=== PATIENT | female | born 1940 | race Caucasian/White ===

== ENCOUNTER 2022-04-01 13:58 | Inpatient (IN) | payer OTHER, MEDICARE ==
[2022-04-01] MEDS ORDERED: LACTATED RINGERS SOLUTION 1000 ML INFUS.BAG IV ONE (15:55)
[2022-04-01] MEDS ORDERED: MECLIZINE HCL 25 MG TABLET (FP) PO ONE (15:55)
[2022-04-01] MEDS ORDERED: MECLIZINE HCL 25 MG TABLET (FP) ONE ×2 (17:07→21:50)
[2022-04-01 17:25] LABS: BASO % 0.3 % (0-2.0); HEMATOCRIT 44.8 % (32.4-45.2); HEMOGLOBIN 15.2 GM/dL (10.7-15.3); LYMPH % 8.9 % (8-40); MCH 29.1 pg (25.7-33.7); MCHC 33.9 g/dl (32.0-36.0); MEAN CELL VOLUME 85.8 fl (80-96); MONO % 10.5 % (3.8-10.2); NEUT % 79.3 % (42.8-82.8); PLATELET COUNT 162 10^3/uL (134-434); RBC 5.22 M/mm3 (3.60-5.2); RDW 12.8 % (11.6-15.6); WHITE BLOOD COUNT 10.3 K/mm3 (4.0-10.0)
[2022-04-01 17:37] LABS: ALBUMIN 4.3 g/dl (3.4-5.0); CALCIUM 9.6 mg/dL (8.5-10.1); MAGNESIUM 2.4 mg/dL (1.8-2.4)
[2022-04-01 17:42] LABS: BILIRUBIN,TOTAL 0.6 mg/dL (0.2-1); TOT PROT 6.9 g/dl (6.4-8.2)
[2022-04-01 17:46] LABS: N-TERMINAL BNP 254.8 pg/ml (5-450)
[2022-04-01] MEDS ORDERED: ASPIRIN 81 MG CHEWABLE TABLETS PO ONE (19:12)
[2022-04-01] MEDS ORDERED: ASPIRIN 81 MG CHEWABLE TABLETS ONE (19:52)
[2022-04-01 20:40] LABS: EPI CELLS 16 /uL (0-25.1); HYALINE CASTS 0 /uL (0-3.1); URINE APPEARANCE CLEAR; URINE BACTERIA 158 /uL (0-1359); URINE BILIRUBIN NEGATIVE (NEGATIVE); URINE COLOR YELLOW; URINE GLUCOSE (UA) NEGATIVE (NEGATIVE); URINE KETONE NEGATIVE (NEGATIVE); URINE LEUK ESTERASE 2+ (NEGATIVE); URINE NITRITE NEGATIVE (NEGATIVE); URINE PROTEIN NEGATIVE (NEGATIVE); URINE RBC 19 /uL (0-23.9); URINE UROBILINOGEN 0.2 mg/dL (0.2-1.0); URINE WBC 40 /uL (0-25.8)
[2022-04-01] MEDS ORDERED: ATORVASTATIN CA 10 MG TABLET (FP) ONE (21:50)
[2022-04-01] MEDS ORDERED: PANTOPRAZOLE 40 MG TABLET PO ONE (21:50)
[2022-04-01] MEDS ORDERED: HEPARIN NA (PORCINE) 5,000 UNITS/ML 1ML VIAL ONE (21:50)
[2022-04-01] MEDS: MECLIZINE HCL 25 MG TABLET (FP) PO SCH ×2 (21:57→22:00)
[2022-04-01] MEDS: PANTOPRAZOLE 40 MG TABLET PO SCH (22:00)
[2022-04-01] MEDS: ATORVASTATIN CA 10 MG TABLET (FP) PO SCH (22:00)
[2022-04-01] MEDS: HEPARIN NA (PORCINE) 5,000 UNITS/ML 1ML VIAL SQ SCH (22:00)
[2022-04-01] MEDS ORDERED: MELATONIN 5 MG TABLETS PO PRN (22:45)
[2022-04-01] MEDS ORDERED: ACETAMINOPHEN 325 MG TABLET (FP) PO PRN (22:45)
[2022-04-01] MEDS ORDERED: ZOLPIDEM TARTRATE 5 MG TABLET PO PRN (22:46)
[2022-04-02 05:32] VITALS: BMI 29.0
[2022-04-02] MEDS: LEVOTHYROXINE NA 50 MCG TABLET (FP) PO SCH (06:21)
[2022-04-02] MEDS: HEPARIN NA (PORCINE) 5,000 UNITS/ML 1ML VIAL SQ SCH ×3 (06:21→23:55)
[2022-04-02 08:23] LABS: BASO % 0.6 % (0-2.0); EOS % 2.2 % (0-4.5); HEMATOCRIT 40.8 % (32.4-45.2); HEMOGLOBIN 13.5 GM/dL (10.7-15.3); LYMPH % 17.7 % (8-40); MCH 28.6 pg (25.7-33.7); MEAN CELL VOLUME 86.5 fl (80-96); MEAN PLT VOLUME 9.4 fl (7.5-11.1); MONO % 13.1 % (3.8-10.2); NEUT % 66.4 % (42.8-82.8); PLATELET COUNT 144 10^3/uL (134-434); RBC 4.72 M/mm3 (3.60-5.2); RDW 12.6 % (11.6-15.6); WHITE BLOOD COUNT 7.1 K/mm3 (4.0-10.0)
[2022-04-02] MEDS: PANTOPRAZOLE 40 MG TABLET PO SCH (09:20)
[2022-04-02] MEDS: MECLIZINE HCL 25 MG TABLET (FP) PO SCH ×3 (09:20→17:53)
[2022-04-02] MEDS: LITHIUM CARBONATE 150 MG CAPSULE PO SCH (10:27)
[2022-04-02] MEDS: LACTATED RINGERS SOLUTION 1,000 ML/1,000 ML INFUS.BAG IV SCH (20:00)
[2022-04-02] MEDS: MECLIZINE HCL 25 MG TABLET (FP) PO PRN (22:00)
[2022-04-02] MEDS ORDERED: MECLIZINE HCL 25 MG TABLET (FP) PO PRN (23:02)
[2022-04-02] MEDS: ATORVASTATIN CA 10 MG TABLET (FP) PO SCH (23:55)
[2022-04-03] MEDS: HEPARIN NA (PORCINE) 5,000 UNITS/ML 1ML VIAL SQ SCH ×3 (06:26→21:55)
[2022-04-03] MEDS: LEVOTHYROXINE NA 50 MCG TABLET (FP) PO SCH (06:49)
[2022-04-03] MEDS: PANTOPRAZOLE 40 MG TABLET PO SCH (09:00)
[2022-04-03] MEDS: LITHIUM CARBONATE 150 MG CAPSULE PO SCH (09:00)
[2022-04-03] MEDS: MECLIZINE HCL 25 MG TABLET (FP) PO PRN (13:41)
[2022-04-03] MEDS: ATORVASTATIN CA 10 MG TABLET (FP) PO SCH (21:56)
[2022-04-03] MEDS ORDERED: MECLIZINE HCL 25 MG TABLET (FP) PO SCH (22:00)
[2022-04-03] MEDS: LACTATED RINGERS SOLUTION 1,000 ML/1,000 ML INFUS.BAG IV SCH (22:04)
[2022-04-04] MEDS: HEPARIN NA (PORCINE) 5,000 UNITS/ML 1ML VIAL SQ SCH ×2 (06:21→14:00)
[2022-04-04] MEDS: LEVOTHYROXINE NA 50 MCG TABLET (FP) PO SCH (06:22)
[2022-04-04] MEDS: PANTOPRAZOLE 40 MG TABLET PO SCH (09:15)
[2022-04-04] MEDS: LITHIUM CARBONATE 150 MG CAPSULE PO SCH (09:15)
[2022-04-04] MEDS: MECLIZINE HCL 25 MG TABLET (FP) PO PRN (09:16)
[2022-04-04 14:27] VITALS: BP 114/52; PULSE 64; RESP 20; TEMP 98.2
== END 2022-04-04 16:00 | DRG 556 ==
LOC: JER 13:58 → OBSVTOIN 18:49 → JERBED 18:49 → J4W 04-02 00:45
PROVIDERS: ADMIT Internal Medicine; ATTEND Internal Medicine
DX: R26.2 Difficulty in walking, not elsewhere classified (principal); R42 Dizziness and giddiness; E78.5 Hyperlipidemia, unspecified; E03.9 Hypothyroidism, unspecified; F31.9 Bipolar disorder, unspecified; I12.9 Hypertensive chronic kidney disease with stage 1 through stage 4 chronic kidney disease, or unspecified chronic kidney disease; N18.9 Chronic kidney disease, unspecified; I44.0 Atrioventricular block, first degree; M62.81 Muscle weakness (generalized); F41.9 Anxiety disorder, unspecified
CPT/HCPCS: 36415; 70450-TC; 70551-TC; 71045-TC-FY; 80053; 80178; 81003; 82607; 82746; 82747; 83735; 83880; 84100; 84443; 84484; 85014; 85025; 85651; 87086; 87186; 93005; 93010; 97116-GP; 97162-GP; 99285-25; C9803-CS; J1644; U0003; U0005

== ENCOUNTER 2023-05-31 16:04 | Observation (INO) | payer OTHER, MEDICARE ==
[~2023-05-31 16:04] MED LIST: MELATONIN 5 MG TABLETS PO ONE
[2023-05-31 16:24] VITALS: BMI 26.5
[2023-05-31 18:05] LABS: BASO % 0.6 % (0-2.0); EOS % 1.2 % (0-4.5); HEMATOCRIT 45.8 % (32.4-45.2); HEMOGLOBIN 15.5 GM/dL (10.7-15.3); LYMPH % 12.3 % (8-40); MCH 28.6 pg (25.7-33.7); MCHC 33.9 g/dl (32.0-36.0); MEAN CELL VOLUME 84.3 fl (80-96); MEAN PLT VOLUME 8.5 fl (7.5-11.1); MONO % 10.6 % (3.8-10.2); NEUT % 75.3 % (42.8-82.8); PLATELET COUNT 178 10^3/uL (134-434); RBC 5.43 M/mm3 (3.60-5.2); RDW 12.2 % (11.6-15.6); WHITE BLOOD COUNT 11.1 K/mm3 (4.0-10.0)
[2023-05-31 18:10] LABS: INR 1.07 (0.83-1.09); PROTHROMBIN TIME (PATIENT) 12.4 SEC (9.7-13.0)
[2023-05-31 18:13] LABS: ACTIVATED PTT 36.8 SECONDS (25.2-36.5)
[2023-05-31 18:28] LABS: POTASSIUM 4.3 mmol/L (3.5-5.1)
[2023-05-31 18:30] LABS: CALCIUM 9.4 mg/dL (8.5-10.1)
[2023-05-31 18:32] LABS: ALBUMIN 4.1 g/dl (3.4-5.0)
[2023-05-31 18:34] LABS: BLOOD UREA NITROGEN 16.9 mg/dL (7-18)
[2023-05-31 18:36] LABS: TOT PROT 6.9 g/dl (6.4-8.2)
[2023-05-31 18:37] LABS: BILIRUBIN,TOTAL 0.6 mg/dL (0.2-1)
[2023-05-31] MEDS ORDERED: SODIUM CHLORIDE 0.9% 500 ML INFUS.BAG IV ONE (23:04)
[2023-05-31] MEDS ORDERED: ACETAMINOPHEN 325 MG TABLET (FP) PO PRN (23:23)
[2023-05-31 23:25] LABS: EPI CELLS 11 /uL (0-25.1); HYALINE CASTS 3 /uL (0-3.1); URINE APPEARANCE CLEAR; URINE BACTERIA 86 /uL (0-1359); URINE BILIRUBIN NEGATIVE (NEGATIVE); URINE COLOR YELLOW; URINE GLUCOSE (UA) NEGATIVE (NEGATIVE); URINE KETONE NEGATIVE (NEGATIVE); URINE LEUK ESTERASE 1+ (NEGATIVE); URINE NITRITE NEGATIVE (NEGATIVE); URINE PROTEIN NEGATIVE (NEGATIVE); URINE RBC 7 /uL (0-23.9); URINE UROBILINOGEN 0.2 mg/dL (0.2-1.0); URINE WBC 39 /uL (0-25.8)
[2023-05-31] MEDS ORDERED: MECLIZINE HCL 25 MG TABLET (FP) PO PRN (23:25)
[2023-05-31] MEDS ORDERED: MELATONIN 5 MG TABLETS PO PRN (23:25)
[2023-05-31] MEDS ORDERED: LACTATED RINGERS SOLUTION 1,000 ML/1,000 ML INFUS.BAG IV SCH (23:45)
[2023-06-01] MEDS ORDERED: PANTOPRAZOLE 40 MG TABLET PO ONE (00:13)
[2023-06-01] MEDS ORDERED: HEPARIN NA (PORCINE) 5,000 UNITS/ML 1ML VIAL ONE (00:13)
[2023-06-01] MEDS: PANTOPRAZOLE 40 MG TABLET PO SCH ×2 (00:22→09:49)
[2023-06-01] MEDS: HEPARIN NA (PORCINE) 5,000 UNITS/ML 1ML VIAL SQ SCH ×4 (00:22→21:30)
[2023-06-01] MEDS ORDERED: LITHIUM CARBONATE 150 MG CAPSULE PO ONE (00:36)
[2023-06-01] MEDS ORDERED: ATORVASTATIN CA 10 MG TABLET (FP) PO ONE (00:37)
[2023-06-01] MEDS ORDERED: MELATONIN 5 MG TABLETS PO ONE (00:37)
[2023-06-01] MEDS ORDERED: ATORVASTATIN CA 20 MG TABLET (FP) ONE (00:47)
[2023-06-01] MEDS ORDERED: MELATONIN 5 MG TABLETS ONE (00:47)
[2023-06-01] MEDS: LEVOTHYROXINE NA 50 MCG TABLET (FP) PO SCH (06:06)
[2023-06-01] MEDS ORDERED: LITHIUM CARBONATE 150 MG CAPSULE PO SCH ×2 (10:00→22:00)
[2023-06-01 10:37] LABS: BASO % 0.6 % (0-2.0); EOS % 1.9 % (0-4.5); HEMOGLOBIN 14.6 GM/dL (10.7-15.3); LYMPH % 12.9 % (8-40); MCH 28.4 pg (25.7-33.7); MCHC 33.1 g/dl (32.0-36.0); MEAN CELL VOLUME 85.8 fl (80-96); MEAN PLT VOLUME 8.6 fl (7.5-11.1); NEUT % 74.6 % (42.8-82.8); PLATELET COUNT 157 10^3/uL (134-434); RBC 5.13 M/mm3 (3.60-5.2); RDW 12.4 % (11.6-15.6)
[2023-06-01] MEDS ORDERED: ATORVASTATIN CA 10 MG TABLET (FP) PO SCH (22:00)
[2023-06-02] MEDS: HEPARIN NA (PORCINE) 5,000 UNITS/ML 1ML VIAL SQ SCH (06:14)
[2023-06-02] MEDS: LEVOTHYROXINE NA 50 MCG TABLET (FP) PO SCH (06:14)
[2023-06-02 08:39] VITALS: RESP 18
[2023-06-02] MEDS: PANTOPRAZOLE 40 MG TABLET PO SCH (09:00)
[2023-06-02 10:50] VITALS: BP 128/59; PULSE 85; TEMP 97.9
== END 2023-06-02 11:21 | disposition home or self-care (01) ==
LOC: JER 16:04 → JERBED 23:14 → J5S 06-01 04:38
PROVIDERS: ADMIT Internal Medicine; ATTEND Internal Medicine
PROC: 3E023GC Introduction of Other Therapeutic Substance into Muscle, Percutaneous Approach (ICD-10-PCS; principal; 2023-05-31)
PROC: 3E0337Z Introduction of Electrolytic and Water Balance Substance into Peripheral Vein, Percutaneous Approach (ICD-10-PCS; 2023-05-31)
DX: R41.0 Disorientation, unspecified (principal); D75.1 Secondary polycythemia; D72.829 Elevated white blood cell count, unspecified; F41.8 Other specified anxiety disorders; F03.90 Unspecified dementia, unspecified severity, without behavioral disturbance, psychotic disturbance, mood disturbance, and anxiety; M62.81 Muscle weakness (generalized); F31.9 Bipolar disorder, unspecified; N18.9 Chronic kidney disease, unspecified; R42 Dizziness and giddiness; E03.9 Hypothyroidism, unspecified; E78.5 Hyperlipidemia, unspecified; R26.81 Unsteadiness on feet
CPT/HCPCS: 0241U-QW; 36415; 70450-TC; 71045-TC-FY; 80053; 80061; 81003; 82550; 82607; 83036; 83880; 84443; 84484; 85025; 85610; 85730; 86850; 86900; 86901; 93005; 93010; 96360; 96372; 97116-GP; 97161-GP; 99285-25; G0378; J1644